=== PATIENT | male | born 1945 | race Two or more races ===

== ENCOUNTER 2022-07-05 00:13 | Inpatient (IN) | payer OTHER ==
[~2022-07-05] VITALS: Ht 152.4 cm; Wt 61.2 kg
--- NOTE | 2022-07-05 00:28 | NUR ---
SE RECIBE MASCULINO ALERTA Y ORIENTADO X3 EN AMBULANCIA EN COMPANIA DE PARAMEDICOS. PTE ES TRANSFER [facility] DE [facility]UM[facility] ACEPTADO POR EL DR. DRAPER KATALINA POR FRACTURA EN CADERA DERECHA DEBIDO A CAIDA EN LA NOCHE DE ARLIN. SE MONITOREAN S/V Y SE UBICA.
[2022-07-05] MEDS ORDERED: CILOSTAZOL100 MG PO (00:43)
[2022-07-05] MEDS ORDERED: CARVEDILOL ER40 MG PO (00:44)
[2022-07-05] MEDS ORDERED: COZAAR100 MG PO (00:44)
[2022-07-05] MEDS ORDERED: TAMS0.4C PO (00:44)
[2022-07-05] MEDS ORDERED: PLAVIX75 MG PO (00:45)
[2022-07-05] MEDS ORDERED: ADULT LOW DOSE81 M1 PO (00:45)
[2022-07-05] MEDS ORDERED: AZOR 10-20 MG1 EACH PO (00:46)
[2022-07-05] MEDS ORDERED: ATORVASTATIN CA40 MG PO (00:46)
--- NOTE | 2022-07-05 02:26 | NUR ---
PERNELL STUBBS ORIENTA A PTE SOBRE TRATAMIENTO E INSTRUCCIONES A SEGUIR, EL REFIERE ENTENDER. SE LE COLECTA MUESTRAS, SE CANALIZA Y SE ADMINISTRA MEDICAMENTO ELVI ORDEN MEDICA. PENDIENTE U/A, JILL X
--- NOTE | 2022-07-05 06:41 | NUR ---
SE TRANSFIERE MASCULINO ALERTA Y ORIENTADO X3 A UNIDAD DE CHEST PAIN POR ORDEN MEDICA. SE CONECTA A MONITOR CARDIACO Y OXIMETRIA DE PULSO. CANULA NASAL A 1 L/MIN. PTE TIENE DOS CANALIZACIONES EN BRAZO TISH #20 X2 PATENTES LIBRES DE EDEMA, ERITEMA NI SIGNOS DE INFECCION. IV FLUIDS 0.9% NSS @ 75 ML/HR Y TRIDIL @ 1 ML/HR. PENDIENTE QUE PTE ENTREGUE U/A. ENVASE SE LE ENTREGO A PTE. SE HUBER PTE EN GLORY POSICION MAS BAJA Y BARANDAS ELEVADAS POR SEGURIDAD.
--- NOTE | 2022-07-05 07:45 | NUR ---
SE RECIBE PACIENTE EN CAMA #16 AREA DE CHEST PAIN. SE OFRECE RANDY PARA EVALUAR CONDICION. PACIENTE DORMIDO, CON CANULA NASAL A 1 LITRO IVF'S PATENTES EN BRAZO IZQ 2 CANALIZACION CON ANGIOS #20, AMBAS AREAS LIBRES DE EDEMA Y/O ERITEMA, BAJANDOLE TRIDIL A 1ML/HR Y .9NSS A 75MLS/HR. SE MIDEN Y DOCUMENTAN S/V. SE MONITOREA POR CAMBIOS. BARANDAS ELEVADAS POR MEEKS SEGURIDAD.
== END 2022-07-13 15:09 | DRG 522 ==
LOC: ER 00:13 → SURG 08:18 → SURH 08:18 → ICU 07-06 18:58 → SURG 07-08 21:23
PROVIDERS: Orthopaedic Surgery; ADMIT Internal Medicine; ATTEND Internal Medicine
PROC: BW21YZZ Computerized Tomography (CT Scan) of Abdomen and Pelvis using Other Contrast (ICD-10-PCS; 2022-07-05)
PROC: 4A12X4Z Monitoring of Cardiac Electrical Activity, External Approach (ICD-10-PCS; 2022-07-05)
PROC: B24BZZZ Ultrasonography of Heart with Aorta (ICD-10-PCS; 2022-07-06)
PROC: 0SRS0JZ Replacement of Left Hip Joint, Femoral Surface with Synthetic Substitute, Open Approach (ICD-10-PCS; principal; 2022-07-09 15:00)
PROC: 30233N1 Transfusion of Nonautologous Red Blood Cells into Peripheral Vein, Percutaneous Approach (ICD-10-PCS; 2022-07-11)
DX: S72.002A Fracture of unspecified part of neck of left femur, initial encounter for closed fracture (principal); W19.XXXA Unspecified fall, initial encounter; D64.9 Anemia, unspecified; I25.10 Atherosclerotic heart disease of native coronary artery without angina pectoris; Z95.0 Presence of cardiac pacemaker; I73.9 Peripheral vascular disease, unspecified; Z20.822 Contact with and (suspected) exposure to COVID-19; I11.0 Hypertensive heart disease with heart failure; I50.9 Heart failure, unspecified; E11.9 Type 2 diabetes mellitus without complications; Z79.4 Long term (current) use of insulin

== ENCOUNTER 2022-08-17 10:23 | Outpatient (CLI) | payer OTHER ==
[~2022-08-17 10:23] MED LIST: ADULT LOW DOSE81 M1 PO; ATORVASTATIN CA40 MG PO; AZOR 10-20 MG1 EACH PO; CARVEDILOL ER40 MG PO; CILOSTAZOL100 MG PO; COZAAR100 MG PO; PLAVIX75 MG PO; TAMS0.4C PO
== END 2022-08-17 10:30 | disposition home or self-care (01) ==
LOC: RAD 10:23
PROVIDERS: ATTEND Orthopaedic Surgery
DX: M25.552 Pain in left hip (principal)

== ENCOUNTER 2022-09-10 10:04 | Outpatient (CLI) | payer OTHER | END 2022-09-10 10:09 | disposition home or self-care (01) | LOC: LAB 10:04 | PROVIDERS: ATTEND Orthopaedic Surgery | DX: M85.9 Disorder of bone density and structure, unspecified (principal); E83.42 Hypomagnesemia; E56.1 Deficiency of vitamin K; E88.89 Other specified metabolic disorders; M81.8 Other osteoporosis without current pathological fracture ==

== ENCOUNTER 2023-01-27 11:07 | Outpatient (CLI) | payer OTHER | END 2023-01-27 11:22 | disposition home or self-care (01) | LOC: RAD 11:07 | PROVIDERS: ATTEND Orthopaedic Surgery | DX: Z96.642 Presence of left artificial hip joint (principal) ==

== ENCOUNTER → 2023-02-21 | Outpatient (CLI) | payer OTHER | END | disposition home or self-care (01) | LOC: RAD 10:06 | PROVIDERS: ATTEND Orthopaedic Surgery | DX: M79.641 Pain in right hand (principal); M79.642 Pain in left hand; M25.561 Pain in right knee; M25.562 Pain in left knee ==